=== PATIENT | female | born 1985 | race Caucasian/White ===

== ENCOUNTER → 2016-07-21 | Outpatient (REF) | payer OTHER ==
[~2016-07-21] MED LIST: ACET-654 PO; ACET500L PO; ANUS2.5C2 EXT; CALC500C2 PO; DOCU10ELUD FT; DOCU10ELUD PO; FLUO20CA9 PO; IBUP600T26 GT; IBUP600T26 PO; MOM30SS FT; No Home Meds; PRENTAB74 PO; PRENTAB9 PO; PROZ20CA11 PO; TUMS500C PO; TYLE325T5 PO
[2016-07-21 12:44] LABS: BASO % 0.2 % (0.0-1.0); EOS # 0.1 K/mm3 (0.0-0.50); EOS % 2.3 % (0.0-3.0); LYMPH # 1.7 K/mm3 (1.5-4.5); LYMPH % 28.6 % (24.0-44.0); MEAN CORPUSCULAR HEMOGLOBIN 30.7 pg (27.0-33.0); MEAN CORPUSCULAR HGB CONC 33.7 g/dl (32.0-36.5); MEAN CORPUSCULAR VOLUME 91.1 fl (80.0-96.0); MONO # 0.4 K/mm3 (0.0-0.8); MONO % 7.4 % (0.0-5.0); NEUTROPHILS # 3.4 K/mm3 (1.8-7.7); NEUTROPHILS % 59.1 % (36.0-66.0); RED CELL DISTRIBUTION WIDTH 12.7 % (11.5-14.5); WHITE BLOOD COUNT 5.8 K/mm3 (4.0-10.0)
[2016-07-21 12:53] LABS: FOLATE 6.2 NG/ML (>5.4); VITAMIN B12 LEVEL 280 PG/ML (247-911)
[2016-07-21 13:46] LABS: ALBUMIN 3.9 GM/DL (3.2-5.2); ALBUMIN/GLOBULIN RATIO 1.39 (1.00-1.93); ALKALINE PHOSPHATASE 73 U/L (45-117); ALT/SGPT 17 U/L (12-78); ANION GAP 7 MEQ/L (8-16); AST/SGOT 11 U/L (15-37); BILIRUBIN,TOTAL 0.6 MG/DL (0.2-1.0); BLOOD UREA NITROGEN 11 MG/DL (7-18); CALCIUM LEVEL 8.5 MG/DL (8.5-10.1); CARBON DIOXIDE LEVEL 26 MEQ/L (21-32); CHLORIDE LEVEL 108 MEQ/L (98-107); CHOLESTEROL LEVEL 208 MG/DL (<200); CREATININE FOR GFR 0.71 MG/DL (0.55-1.02); FERRITIN 13 NG/ML (8-252); FREE T4 0.79 NG/DL (0.76-1.46); GLOMERULAR FILTRATION RATE > 60.0 (>60); GLUCOSE, FASTING 87 MG/DL (70-105); MAGNESIUM LEVEL 2.1 MG/DL (1.8-2.4); POTASSIUM SERUM 4.2 MEQ/L (3.5-5.1); SODIUM LEVEL 141 MEQ/L (136-145); TOTAL PROTEIN 6.7 GM/DL (6.4-8.2); TRIGLYCERIDES LEVEL 110 MG/DL (<150)
== END ==
LOC: M LABDRWAD 12:16
PROVIDERS: ATTEND Physician Assistant Medical
DX: R53.83 Other fatigue (principal); E78.2 Mixed hyperlipidemia

== ENCOUNTER → 2016-08-28 | Outpatient (CLI) | payer OTHER ==
--- NOTE | 2016-08-28 16:51 | REP ---
Clinical: Through pain. Technique: AP and lateral soft tissue neck views. Findings: The nasopharyngeal, oral pharyngeal, and hypopharyngeal/upper tracheal airway is patent and normal. There is no evidence for adenoid hypertrophy or swelling. The prevertebral soft tissues are normal. No subcutaneous emphysema. No foreign body. Osseous structures are intact. Impression: Normal soft tissue neck radiographs. Signed by Shashi Rasheed MD 08/28/2016 04:43 P
== END ==
LOC: M ADAMS 16:15
PROVIDERS: ATTEND Physician Assistant Medical
DX: R07.0 Pain in throat (principal)

== ENCOUNTER 2017-02-01 13:13 | Emergency (ER) | payer OTHER ==
[~2017-02-01] VITALS: Ht 160 cm; Wt 61.8 kg
[~2017-02-01 13:13] MED LIST changes: +FLUO20CA19 PO; -FLUO20CA9 PO
[2017-02-01] MEDS ORDERED: SERO50TA PO (13:29)
--- NOTE | 2017-02-01 14:09 | ECGEPIP ---
Stationary ECG Study 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
[2017-02-01 14:54] LABS: BASO % 0.4 % (0.0-1.0); EOS # 0.1 K/mm3 (0.0-0.50); EOS % 1.5 % (0.0-3.0); LARGE UNSTAINED CELL # 0.1 K/mm3 (0.0-0.4); LARGE UNSTAINED CELL % 1.5 % (0.0-4.0); LYMPH # 2.4 K/mm3 (1.5-4.5); LYMPH % 26.2 % (24.0-44.0); MEAN CORPUSCULAR HEMOGLOBIN 31.1 pg (27.0-33.0); MEAN CORPUSCULAR HGB CONC 34.6 g/dl (32.0-36.5); MONO # 0.7 K/mm3 (0.0-0.8); MONO % 7.8 % (0.0-5.0); NEUTROPHILS # 5.3 K/mm3 (1.8-7.7); NEUTROPHILS % 62.6 % (36.0-66.0); PLATELET COUNT, AUTOMATED 211 k/mm3 (150-450); RED CELL DISTRIBUTION WIDTH 12.9 % (11.5-14.5); WHITE BLOOD COUNT 8.5 K/mm3 (4.0-10.0)
--- NOTE | 2017-02-01 15:00 | REP ---
AP portable chest: 02/01/2017 Clinical history: Syncope, near-syncope. Findings: There are no prior studies. Lungs are well inflated and without pleural effusion, acute infiltrate, atelectasis or mass. Heart, mediastinal, and hilar contours normal. Airway intact. Bones unremarkable. Impression: 1. No acute cardiopulmonary change. Signed by Tavon Zeng MD 02/01/2017 07:12 P
[2017-02-01 15:02] LABS: CONTROL LINE HCG INT CTR LINE PRESENT
[2017-02-01 15:14] LABS: ANION GAP 6 MEQ/L (8-16); BLOOD UREA NITROGEN 13 MG/DL (7-18); CALCIUM LEVEL 9.3 MG/DL (8.5-10.1); CARBON DIOXIDE LEVEL 25 MEQ/L (21-32); CHLORIDE LEVEL 107 MEQ/L (98-107); CREATININE FOR GFR 0.75 MG/DL (0.55-1.02); GLOMERULAR FILTRATION RATE > 60.0 (>60); GLUCOSE, FASTING 80 MG/DL (70-105); MAGNESIUM LEVEL 2.3 MG/DL (1.8-2.4); POTASSIUM SERUM 3.8 MEQ/L (3.5-5.1); SODIUM LEVEL 138 MEQ/L (136-145)
[2017-02-01 15:25] LABS: FREE T4 0.94 NG/DL (0.76-1.46)
--- NOTE | 2017-02-01 17:05 | REP ---
CT Head without contrast HISTORY: Syncope COMPARISON: None There is no intraparenchymal hemorrhage, acute infarct, mass or midline shift. The ventricular system is normal in appearance. There is no extra cerebral collection. There is no fracture. The visualized sinuses are clear. IMPRESSION: There is no intracranial lesion. Signed by Toi Sethi MD 02/01/2017 04:56 P
[2017-02-01 17:48] VITALS: BP 109/73
== END 2017-02-01 17:35 | disposition home or self-care (01) ==
LOC: M ED 13:13
DX: R55 Syncope and collapse (principal); F32.9 Major depressive disorder, single episode, unspecified; F17.200 Nicotine dependence, unspecified, uncomplicated; F12.90 Cannabis use, unspecified, uncomplicated; Z88.8 Allergy status to other drugs, medicaments and biological substances; Z79.899 Other long term (current) drug therapy

== ENCOUNTER → 2017-09-15 | Outpatient (REF) | payer OTHER ==
[2017-09-15 21:58] LABS: LITHIUM LEVEL 0.28 MEQ/L (0.60-1.20)
== END ==
LOC: M LAB REF 21:10
DX: F31.75 Bipolar disorder, in partial remission, most recent episode depressed (principal); Z51.81 Encounter for therapeutic drug level monitoring
CPT/HCPCS: 80178

== ENCOUNTER → 2017-11-03 | Outpatient (REF) | payer OTHER ==
[2017-11-03 13:51] LABS: ANION GAP 6 MEQ/L (8-16); BLOOD UREA NITROGEN 9 MG/DL (7-18); CALCIUM LEVEL 9.1 MG/DL (8.5-10.1); CARBON DIOXIDE LEVEL 27 MEQ/L (21-32); CHLORIDE LEVEL 107 MEQ/L (98-107); CREATININE FOR GFR 0.77 MG/DL (0.55-1.30); GLOMERULAR FILTRATION RATE > 60.0 (>60); GLUCOSE, FASTING 92 MG/DL (70-100); POTASSIUM SERUM 4.7 MEQ/L (3.5-5.1); SODIUM LEVEL 140 MEQ/L (136-145)
[2017-11-03 13:58] LABS: LITHIUM LEVEL 0.66 MEQ/L (0.60-1.20)
== END ==
LOC: M LABDRWAD 12:54
DX: F31.75 Bipolar disorder, in partial remission, most recent episode depressed (principal)

== ENCOUNTER → 2018-01-14 | Outpatient (CLI) | payer OTHER | LOC: M ADAMS 13:17 | DX: M25.542 Pain in joints of left hand (principal) | CPT/HCPCS: 73130 ==

== ENCOUNTER → 2019-03-18 | Outpatient (CLI) | payer OTHER ==
[~2019-03-18] MED LIST changes: -DOCU10ELUD FT; -DOCU10ELUD PO; +DOCU5LIQ FT; +DOCU5LIQ PO; +SERO50TA PO
--- NOTE | 2019-03-19 04:16 | REP ---
Clinical: Pain right fourth digit. Technique: AP, lateral, bilateral oblique views of the right fourth digit. Findings: A subtle linear lucency is identified through the middle phalanx concerning for possible nondisplaced fracture. Correlation with history of trauma is recommended. Remainder examination appears normal. Impression: Cannot exclude subtle nondisplaced fracture involving the middle phalanx. Electronically Signed by Shashi Rasheed MD 03/19/2019 04:07 A
== END ==
LOC: M ADAMS 11:21
PROVIDERS: ATTEND Physician Assistant
DX: M79.644 Pain in right finger(s) (principal)

== ENCOUNTER 2020-11-07 11:45 | Emergency (ER) | payer OTHER ==
[~2020-11-07] VITALS: Ht 160 cm; Wt 54.7 kg
[2020-11-07 11:45] VITALS: BP 124/76
[~2020-11-07 11:45] MED LIST changes: -FLUO20CA19 PO; +FLUO20CA22 PO
[2020-11-07] MEDS ORDERED: KETOROLAC TROMETHAMINE 10 MG TAB PO ONE (12:35)
[2020-11-07] MEDS ORDERED: methocarbamoL 500 MG TAB PO ONE (12:35)
[2020-11-07] MEDS ORDERED: METH-1164 PO (12:38)
[2020-11-07] MEDS ORDERED: KETO10TAB PO (12:38)
== END 2020-11-07 12:45 | disposition home or self-care (01) ==
LOC: M ED 11:45
DX: S29.012A Strain of muscle and tendon of back wall of thorax, initial encounter (principal); X50.0XXA Overexertion from strenuous movement or load, initial encounter; Y92.9 Unspecified place or not applicable; Y93.89 Activity, other specified; Y99.9 Unspecified external cause status; M54.5 Low back pain; F43.10 Post-traumatic stress disorder, unspecified; F41.9 Anxiety disorder, unspecified; F17.200 Nicotine dependence, unspecified, uncomplicated; Z88.8 Allergy status to other drugs, medicaments and biological substances

== ENCOUNTER 2023-08-07 17:36 | Inpatient (IN) | payer MEDICAID, OTHER ==
[~2023-08-07] VITALS: Ht 157.5 cm; Wt 52.2 kg
[~2023-08-07 17:36] MED LIST changes: +KETO10TAB PO; +METH-1164 PO
[2023-08-07 18:59] LABS: HEMATOCRIT 36.2 % (36.0-47.0); HEMOGLOBIN 12.4 g/dl (12.0-15.5); MEAN CORPUSCULAR HEMOGLOBIN 31.5 pg (27.0-33.0); MEAN CORPUSCULAR HGB CONC 34.3 g/dl (32.0-36.5); MEAN CORPUSCULAR VOLUME 91.9 fl (80.0-96.0); PLATELET COUNT, AUTOMATED 216 10^3/uL (150-450); RED BLOOD COUNT 3.94 10^6/uL (4.00-5.40); WHITE BLOOD COUNT 10.5 10^3/uL (4.0-10.0)
[2023-08-07 19:26] LABS: BARBITURATES URINE NEGATIVE (NEGATIVE); COCAINE METABOLITE URINE NEGATIVE (NEGATIVE); METHADONE URINE NEGATIVE (NEGATIVE)
[2023-08-07 19:27] LABS: BENZODIAZEPINES URINE NEGATIVE (NEGATIVE); OPIATES URINE NEGATIVE (NEGATIVE); PHENCYCLIDINE URINE NEGATIVE (NEGATIVE)
[2023-08-07 19:29] LABS: ETHYL ALCOHOL (ETHANOL) < 0.003 % (0.000-0.010)
[2023-08-07 19:30] LABS: AMPHETAMINES LEVEL URINE POSITIVE (NEGATIVE); CANNABINOIDS URINE POSITIVE (NEGATIVE)
[2023-08-07 19:30] LABS: SALICYLATE LEVEL < 3.0 MG/DL (<30)
[2023-08-07 19:31] LABS: ALBUMIN 4.2 G/DL (3.2-5.2); ALKALINE PHOSPHATASE 63 U/L (46-116); ALT/SGPT 17 U/L (7.0-40); AST/SGOT 20 U/L (<34); BILIRUBIN,DIRECT 0.7 MG/DL (<0.4); BILIRUBIN,TOTAL 2.2 MG/DL (0.3-1.2); BLOOD UREA NITROGEN 26 MG/DL (9-23); CALCIUM LEVEL 9.5 MG/DL (8.5-10.1); CARBON DIOXIDE LEVEL 20 MMOL/L (20-31); CHLORIDE LEVEL 106 MMOL/L (98-107); CREATININE FOR GFR 0.77 MG/DL (0.55-1.30); GLOMERULAR FILTRATION RATE > 60.0 (>60); GLUCOSE, FASTING 76 MG/DL (60-100); POTASSIUM SERUM 3.7 MMOL/L (3.5-5.1); SODIUM LEVEL 138 MMOL/L (136-145)
[2023-08-07 19:32] LABS: THYROID STIMULATING HORMONE 0.895 uIU/ML (0.55-4.78)
[2023-08-07 19:34] LABS: HCG, SERUM QUALITATIVE NEGATIVE (NEGATIVE)
[2023-08-07] MEDS ORDERED: HOME MED LIST COMPLETE! XX SCH (20:30)
[2023-08-08] MEDS: LORazepam 2 MG TAB PO STA (10:05)
[2023-08-08] MEDS: NICOTINE 21MG/24HR 1 EA TRANSDERMAL TD SCH (10:05)
[2023-08-08] MEDS ORDERED: MOM 30ML SUSPENSION UDC PO PRN (13:05)
[2023-08-08] MEDS ORDERED: IBUPROFEN 400MG TAB PO PRN (13:05)
[2023-08-08] MEDS ORDERED: MAALOX 30 ML SUSP *UDC PO PRN (13:05)
[2023-08-08] MEDS ORDERED: ACETAMINOPHEN TAB 650MG DOSE (2X325MG) PO PRN (13:05)
[2023-08-08] MEDS: traZODone 50 MG TAB PO PRN (21:45)
[2023-08-09 06:17] VITALS: BP 101/58; TEMP 96.9; O2SAT 99
[2023-08-09] MEDS: NICOTINE 21MG/24HR 1 EA TRANSDERMAL TD SCH (09:00)
[2023-08-09] MEDS: buPROPion **XL** TABLET 150MG (WELLBUTRIN XL) PO SCH (11:11)
[2023-08-09] MEDS: diphenhydrAMINE 25MG CAP PO PRN (18:08)
[2023-08-10 06:10] VITALS: BP 95/53; TEMP 97.7; O2SAT 100
[2023-08-10 17:22] VITALS: BP 125/58; TEMP 97.3
[2023-08-11 06:53] VITALS: BP 115/70; TEMP 97.7; O2SAT 100
[2023-08-11 16:01] VITALS: BP 110/74; TEMP 97.8; O2SAT 99
[2023-08-11] MEDS: MIRTAZAPINE 7.5MG PER 1/2 TABLET PO PRN (21:16)
[2023-08-12 06:44] VITALS: BP 107/65; TEMP 97.7; O2SAT 99
[2023-08-12 16:28] VITALS: BP 110/60; TEMP 97.7; O2SAT 99
[2023-08-12] MEDS: traZODone 25MG PER 1/2 TABLET PO PRN (20:08)
[2023-08-13 06:27] VITALS: BP 101/60; TEMP 97.4; O2SAT 98
[2023-08-13 15:23] VITALS: BP 121/64; TEMP 97.8; O2SAT 100
[2023-08-14 06:25] VITALS: BP 117/77; TEMP 97.7; O2SAT 99
[2023-08-14] MEDS ORDERED: TRAZ-252 PO (10:29)
[2023-08-14] MEDS ORDERED: BUPR150T12 PO (10:29)
[2023-08-14] MEDS ORDERED: NICO21PAT TD (10:29)
== END 2023-08-14 11:36 | disposition home or self-care (01) | DRG 751 ==
LOC: M ED 17:36 → M ED INP 08-08 13:03 → M PSY 08-08 17:06
PROVIDERS: ADMIT Student in an Organized Health Care Education/Training Program; ATTEND Student in an Organized Health Care Education/Training Program
DX: F33.2 Major depressive disorder, recurrent severe without psychotic features (principal); R45.851 Suicidal ideations; F43.10 Post-traumatic stress disorder, unspecified; F15.10 Other stimulant abuse, uncomplicated; F12.10 Cannabis abuse, uncomplicated; F41.1 Generalized anxiety disorder; F17.210 Nicotine dependence, cigarettes, uncomplicated; Z63.8 Other specified problems related to primary support group; Z59.00 Homelessness unspecified; Z62.810 Personal history of physical and sexual abuse in childhood; Z88.8 Allergy status to other drugs, medicaments and biological substances